=== PATIENT | male | born 1975 | race African-American/Black ===

== ENCOUNTER 2018-05-25 09:49 | Emergency (ER) | payer MEDICARE ==
[~2018-05-25] VITALS: Ht 180.3 cm; Wt 92.3 kg
[2018-05-25 10:43] VITALS: Ht 180.3 cm; Wt 92.3 kg
[2018-05-25] MEDS ORDERED: NORCO 7.5/325 T1 TA1 PO (10:45)
[2018-05-25] MEDS ORDERED: ULTRAM50 MG PO (10:45)
[2018-05-25] MEDS ORDERED: ZANAFLEX4 MG PO (10:46)
[2018-05-25] MEDS ORDERED: NEURONTIN 300300 MG PO (10:46)
[2018-05-25] MEDS ORDERED: MOBIC7.5 MG PO (10:46)
[2018-05-25] MEDS ORDERED: LOVASTATIN10 MG PO (10:46)
[2018-05-25] MEDS ORDERED: ACETAMINOPHEN500 M1 PO (14:36)
[2018-05-25] MEDS ORDERED: IBUPROFEN800 MG PO (14:36)
[2018-05-25 14:49] VITALS: BP 154/82
== END 2018-05-25 14:49 | disposition home or self-care (01) ==
LOC: D.ER 09:49
DX: S13.4XXA Sprain of ligaments of cervical spine, initial encounter (principal); V43.52XA Car driver injured in collision with other type car in traffic accident, initial encounter; Y93.89 Activity, other specified; Y92.410 Unspecified street and highway as the place of occurrence of the external cause